=== PATIENT | female | born 1960 | race Caucasian/White ===

== ENCOUNTER 2016-08-31 15:33 | Inpatient (IN) | payer BC ==
[2016-08-31] VITALS (14 sets, daily range): BP systolic 102–119; BP diastolic 50–65; PULSE 110–118; RESP 15–24; TEMP 99.9
[~2016-08-31] VITALS: Ht 152.4 cm; Wt 83.3 kg
[~2016-08-31 15:33] MED LIST: ACET-1145 PO; ALBU8.5H3; CYCL5TAB PO; DICL75TA2 PO; LIDOCAINE 2% (SDV) 5 ML INJ ONE; NASO17; PROPOFOL 200 MG INJ ONE; SUCCINYLCHOLINE CHLORIDE 100 MG/5 ML SYG IV ONE
[2016-08-31] MEDS ORDERED: CEFEPIME 2GM/50 ML (PMX) 50 ML IVPB STA (15:43)
[2016-08-31] MEDS ORDERED: SODIUM CHLORIDE 0.9% 1L BAG IV* STA (15:43)
--- NOTE | 2016-08-31 16:19 | RADRPT ---
PROCEDURE: XR Chest. CLINICAL INDICATION: Sepsis TECHNIQUE: Chest AP portable. COMPARISON: 01/28/2009 FINDINGS: The mediastinal structures are unremarkable. The heart is normal in size and configuration. The pu lmonary vascularity is normal. The lung araujo are unremarkable. No consolidation is identified. The pleural spaces are unremarkable. The axial skeleton is unremarkable. IMPRESSION: No active intrathoracic disease. RPTAT: HGDB .Elver Eldridge MD, MD Date Time Electronically viewed and signed by .Elver Eldridge MD, on 08/31/2016 16:18 .B/
[2016-08-31] MEDS ORDERED: METR250T19 PO (16:24)
[2016-08-31] MEDS ORDERED: SUCR1TAB56 PO (16:24)
[2016-08-31] MEDS ORDERED: RANI300T PO (16:25)
[2016-08-31] MEDS ORDERED: DICY10CA60 PO (16:30)
[2016-08-31] MEDS ORDERED: DICYCLOMINE HCL PO (16:31)
[2016-08-31 16:32] LABS: HEMATOCRIT 41.3 % (37.0-47.0); HEMOGLOBIN 14.1 g/dl (12.0-16.0); MEAN CORPUSCULAR HEMOGLOBIN 29.4 pg (29.0-33.0); MEAN CORPUSCULAR HGB CONC 34.1 g/dl (32.0-37.0); MEAN CORPUSCULAR VOLUME 86.1 fl (82.0-101.0); MEAN PLATELET VOLUME 11.3 fl (7.4-10.4); PLATELET COUNT 140 10^3/UL (140-440); RED CELL DISTRIBUTION WIDTH 13.2 % (11.5-14.5); UNCORRECTED WBC 21.6 10^3/ul (4.8-10.8); WHITE BLOOD COUNT 21.6 10^3/ul (4.8-10.8)
[2016-08-31 16:41] LABS: CONDITION 1; INR 1.18; LH ANALYZER COMMENTS 1; PROTIME 15.1 Sec (12.2-14.2); PT RATIO 1.2; SUSPECT 1
[2016-08-31 16:42] LABS: ALBUMIN 3.6 g/dl (3.3-4.9); CHLORIDE 99 mmol/L (97-110); PARTIAL THROMBOPLASTIN TIME 29.8 Sec (25.0-35.0)
[2016-08-31 16:43] LABS: POTASSIUM 3.1 mmol/L (3.5-5.1); SODIUM 136 mmol/L (135-144)
[2016-08-31 16:45] LABS: ANION GAP 17 (8-16); ASPARTATE AMINO TRANSFERASE 54 IU/L (15-46); BILIRUBIN,INDIRECT 1.5 mg/dl (0-1.1); BILIRUBIN,TOTAL 1.5 mg/dl (0.2-1.3); BLOOD UREA NITROGEN 13 mg/dl (7-20); CARBON DIOXIDE 23 mmol/L (21-31); CREATININE 0.73 mg/dl (0.44-1.00); TOTAL PROTEIN 7.6 g/dl (6.1-8.1)
[2016-08-31 16:46] LABS: ALANINE AMINOTRANSFERASE 58 IU/L (13-69); ALKALINE PHOSPHATASE 116 IU/L (42-121); CALCIUM 8.8 mg/dl (8.4-10.2); GLUCOSE 140 mg/dl (70-220)
[2016-08-31 16:58] LABS: TROPONIN-I < 0.012 ng/ml (0.00-0.12)
[2016-08-31] MEDS ORDERED: ONDANSETRON 4 MG INJ IV STA (18:04)
[2016-08-31] MEDS ORDERED: morphine 4 MG/ML VIAL IV STA (18:04)
[2016-08-31 18:20] LABS: LYMPHOCYTES # 0.4 10^3/ul (0.8-2.9); MONOCYTE # 1.1 10^3/ul (0.3-0.9); NEUTROPHIL # 17.9 10^3/ul (1.6-7.5)
[2016-08-31 18:36] LABS: ADD UMIC YES; URINE BILIRUBIN (Dip) NEGATIVE (NEGATIVE); URINE BLOOD (Dip) 2+ (NEGATIVE); URINE COLOR LT. YELLOW (YELLOW); URINE GLUCOSE (Dip) NEGATIVE (NEGATIVE); URINE KETONES (Dip) 15 (NEGATIVE); URINE LEUKOCYTE ESTERASE (Dip) NEGATIVE (NEGATIVE); URINE NITRITE (Dip) NEGATIVE (NEGATIVE); URINE TOTAL PROTEIN (Dip) TRACE (NEGATIVE); URINE UROBILINOGEN (Dip) 0.2 E.U./dL (0.1-1.0)
[2016-08-31 19:13] LABS: BACTERIA,URINE FEW; MUCUS,URINE FEW; SQUAMOUS EPITHELIAL CELL,UR FEW
--- NOTE | 2016-08-31 21:11 | RADRPT ---
PROCEDURE: CT abdomen and pelvis without intravenous contrast. CLINICAL INDICATION: Pain. TECHNIQUE: CT of the abdomen/pelvis was performed utilizing axial images with reconstructions in s agittal and coronal planes. The administered radiation dose is CTDI 17 mGy, DLP 945 mGy-cm. COMPARISON: No pertinent prior examinations were submitted for comparison. FINDINGS: Visualized Chest: The visualized lung bases are clear. Abdomen: The spleen, pancreas, gallbladder,and adrenal glands are unremarkable. The liver is diffusely dec reased in attenuation, compatible with hepatic steatosis. The kidneys are without hydronephrosis. No definite urinary calculi are seen. The appendix is identified in the right lower quadrant and pelvis. The appendix is markedly enlarge d, measuring up to 2 cm and there are extensive surrounding inflammatory changes. Multiple small fo ci of extraluminal air and surrounding fluid are also present. Multiple appendicoliths are noted wi thin the appendix. There is no intra-abdominal adenopathy. There is mild intra-abdominal free fluid. Pelvis: Moderate free fluid is seen within the pelvis. The uterus is lobulated with multiple fibroids. The re is no pelvic adenopathy. The catheter is noted within the bladder. There is some thickening of the bladder christianson which may be reactive. Osseous structures: Unremarkable. IMPRESSION: Perforated appendicitis with extensive adjacent inflammatory changes. Bladder wall thickening which is likely reactive although cystitis would not be excluded. Fibroid uterus. Emergent findings were discussed with CARLOS A GUTIÉRREZ at approximately 08/31/2016 9:07:15 PM. RPTAT: HIKT .Torsten Ferguson MD, Date Time Electronically viewed and signed by .Torsten Ferguson MD, on 08/31/2016 21:10 .T/
--- NOTE | 2016-08-31 21:21 | ERA ---
ER Documentation Chief Complaint Date/Time DATE: 08/31/16 TIME: 21:11 Chief Complaint GENERALIZED ABD PAIN X 4 DAYS HPI 56-year-old female with abdominal pain and fever. Pain is lower abdominal on both sides of her abdomen and is made worse by palpation. This been worsening for 4 days. She states that she has had chills but is not sure about fevers. She has nausea and has vomited once was nonbilious nonbloody. ROS All systems reviewed and are negative except as per history of present illness. Medications Home Meds Reported Medications [Dicyclomine Hcl] No Conflict Check, 20 MG PO BID 08/31/16 Ranitidine Hcl* (Ranitidine Hcl*) 300 Mg Tablet, 300 MG PO HS, #30 TAB 08/31/16 Sucralfate* (Carafate*) 1 Gm Tab, 1 GM PO BID, TAB 08/31/16 Metronidazole* (Metronidazole*) 250 Mg Tablet, 250 MG PO BID, TAB 08/31/16 Discontinued Reported Medications Dicyclomine Hcl* (Bentyl*) 10 Mg Capsule, 20 MG PO QID, CAP 08/31/16 Cyclobenzaprine Hcl* (Cyclobenzaprine Hcl*) 5 Mg Tablet, 5 MG PO DAILY, TAB 06/26/14 Acetaminophen-Codeine (Tylenol With Codeine #3 Tablet) 300-30 Mg Tablet, 1 TAB PO BID Y for PAIN, TAB 06/26/14 Diclofenac Sodium* (Diclofenac Sodium*) 75 Mg Tablet.dr, 75 MG PO BID, TAB 06/26/14 Mometasone Furoate* (Nasonex*) 17 Gm [place].pump 11/03/11 Albuterol Sulfate* (Proair HFA*) 8.5 Gm Hfa.aer.ad 11/03/11 Allergies Allergies: Coded Allergies: naproxen (Verified Allergy, Unknown, 08/31/16) mouth swells PMhx/Soc History of Surgery: Yes () Anesthesia Reaction: No Hx Neurological Disorder: No Hx Respiratory Disorders: Yes (BRONCHITIS ) Hx Cardiac Disorders: No Hx Psychiatric Problems: No Hx Miscellaneous Medical Probl: Yes (gastric ulcer) Hx Alcohol Use: No Hx Substance Use: No Hx Tobacco Use: No Smoking Status: Never smoker Physical Exam Vitals Vital Signs Date Time Temp Pulse Resp B/P Pulse Ox O2 Delivery O2 Flow Rate FiO2 08/31/16 18:00 99.9 101 18 109/71 100 Room Air 08/31/16 17:00 99.6 104 18 112/61 98 Room Air 08/31/16 15:36 102.8 119 18 116/54 99 Physical Exam Const: [] Mild distress, appears in comfort Head: Atraumatic Eyes: Normal Conjunctiva ENT: Normal External Ears, Nose and Mouth. Neck: Full range of motion..~ No meningismus. Resp: Clear to auscultation bilaterally Cardio: Regular tachycardia, no murmurs Abd: Soft, moderate lower abdominal pain in both left lower quadrant mid abdomen suprapubic area and right lower quadrant, mild voluntary guarding, no rebound, non distended. Normal bowel sounds Skin: No petechiae or rashes Back: No midline or flank tenderness Ext: No cyanosis, or edema Neur: Awake and alert and oriented 3 Psych: Normal Mood and Affect Result Diagram: 08/31/16 1600 08/31/16 1600 Results 24 hrs Laboratory Tests Test 08/31/16 16:00 08/31/16 17:58 08/31/16 18:21 Activated Partial Thromboplast Time 29.8Sec Alanine Aminotransferase (ALT/SGPT) 58IU/L Albumin 3.6g/dl Albumin/Globulin Ratio 0.90 Alkaline Phosphatase 116IU/L Anion Gap 17 Aspartate Amino Transf (AST/SGOT) 54IU/L Band Neutrophils % 10.0% Blood Morphology Comment Blood Urea Nitrogen 13mg/dl Calcium Level 8.8mg/dl Carbon Dioxide Level 23mmol/L Chloride Level 99mmol/L Creatinine 0.73mg/dl Direct Bilirubin 0.00mg/dl Globulin 4.00g/dl Glucose Level 140mg/dl Hematocrit 41.3% Hemoglobin 14.1g/dl INR International Normalized Ratio 1.18 Indirect Bilirubin 1.5mg/dl Lactic Acid Level 1.8mmol/L 1.3mmol/L Large Platelets FEW Lymphocytes # 0.410^3/ul Lymphocytes % 2.0% Mean Corpuscular Hemoglobin 29.4pg Mean Corpuscular Hemoglobin Concent 34.1g/dl Mean Corpuscular Volume 86.1fl Mean Platelet Volume 11.3fl Monocytes # 1.110^3/ul Monocytes % 5.0% Neutrophils # 17.910^3/ul Neutrophils % 83.0% Platelet Count 83130^3/UL Potassium Level 3.1mmol/L Prothrombin Time 15.1Sec Prothrombin Time Ratio 1.2 Red Blood Count 4.8010^6/ul Red Cell Distribution Width 13.2% Sodium Level 136mmol/L Total Bilirubin 1.5mg/dl Total Protein 7.6g/dl Troponin I < 0.012ng/ml White Blood Count 21.610^3/ul Urine Bacteria FEW Urine Bilirubin NEGATIVE Urine Clarity CLEAR Urine Color LT. YELLOW Urine Glucose NEGATIVE% Urine Hemoglobin 2+ Urine Ketones 15 Urine Leukocyte Esterase NEGATIVE Urine Microscopic RBC 5-10/HPF Urine Microscopic WBC 0-2/HPF Urine Mucus FEW Urine Nitrite NEGATIVE Urine Specific [place] <=1.005 Urine Squamous Epithelial Cells FEW Urine Total Protein TRACE Urine Urobilinogen 0.2 E.U./dL Urine pH 6.0 Current Medications Medications (Trade) Dose Ordered Sig/Reymundo Route PRN Reason Start Time Stop Time Status Last Admin Dose Admin Sodium Chloride 1950 ml 1,950 ml BOLUS OVER 2 HOURS STAT IV* 08/31/16 15:43 08/31/16 15:44 DC 08/31/16 16:02 Cefepime HCl (Maxipime 2gm/50 ml (Pmx)) 50 ml @ 100 mls/hr ONCE STAT IVPB 08/31/16 15:43 08/31/16 16:12 DC 08/31/16 16:02 Morphine Sulfate (morphine) 4 mg ONCE STAT IV 08/31/16 18:04 08/31/16 18:06 DC 08/31/16 18:12 Ondansetron HCl 4 mg 4 mg ONCE STAT IV 08/31/16 18:04 08/31/16 18:06 DC 08/31/16 18:12 Metronidazole (Flagyl 500 Mg (Pmx)) 100 ml @ 100 mls/hr ONCE ONCE IVPB 08/31/16 21:30 08/31/16 22:29 Procedures/MDM Perforated appendicitis with sepsis. Patient is initially treated with cefepime 30 cc of IV fluid per kilogram. She was given morphine and Zofran. Her pain improved. Radiologist called with a CT read of perforated appendicitis. I then give the patient Flagyl as well. Spoke with Dr. Elias surgeon environmental associate who accepted the case. I then spoke with Dr. Hill who accepts the admission to medical surgical floor. If the patient additional 8 mg of morphine for pain. Give her 2 g of magnesium for prolonged QTC. Ordered IV potassium for mildly decreased potassium she is currently comfortable. Tachycardia reduced with fluid administration. CT abdomen pelvis interpretation: Perforated appendicitis, no obstruction, no acute fractures, no gallstones. EKG interpretation: Sinus tachycardia rate of 102, normal axis, no ST or T-wave changes concerning for acute ischemia, prolonged QTc of 675. Cardio my interpretation: Sinus tachycardia improved with IV fluid administration Chest x-ray interpretation: No acute process nor any stent or pneumothorax and infiltrates no bony edema no fracture Critical care time 46 minutes: This includes management of perforated appendicitis with sepsis, given fluid ministration, early antibiotic administration, discussion with surgeon and admitting doctor, discussion with patient, chart review, multiple visits the patient bedside reassess status. Departure Diagnosis: Primary Impression: Ruptured appendicitis Additional Impressions: Sepsis Prolonged QT interval Hypokalemia CARLOS A TOBIN DO Aug 31, 2016 21:20
[2016-08-31] MEDS ORDERED: metroNIDAZOLE 500 MG/NS (PMX) 100 ML IVPB ONE (21:30)
[2016-08-31] MEDS ORDERED: morphine 10 MG INJ IV ONE (21:30)
[2016-08-31] MEDS ORDERED: MAGNESIUM SULFATE 2 GM/50 ML 50 ML IVPB ONE (21:30)
[2016-08-31] MEDS: POTASSIUM CHLORIDE 50 ML IVPB SCH ×2 (21:42→23:32)
[2016-08-31] MEDS ORDERED: PROPOFOL 0 ML ONE (21:44)
[2016-08-31] MEDS ORDERED: LIDOCAINE 2% (SDV) 5 ML INJ ONE (21:45)
[2016-08-31] MEDS ORDERED: SUCCINYLCHOLINE CHLORIDE 100 MG/5 ML SYG IV ONE ×2 (21:45→22:38)
[2016-08-31] MEDS ORDERED: DEXAMETHASONE 4 MG/ML 1 ML INJ ONE (21:48)
[2016-08-31] MEDS ORDERED: KETOROLAC 30 MG INJ ONE (21:48)
[2016-08-31] MEDS ORDERED: ONDANSETRON 4 MG INJ ONE (21:48)
[2016-08-31] MEDS ORDERED: LIDOCAINE 1%/EPI (MDV) 20 ML INJ ONE (21:50)
[2016-08-31] MEDS ORDERED: BUPIVACAINE 0.25%/EPI (SDV) 30 ML INJ ONE (21:51)
[2016-08-31] MEDS ORDERED: ROCURONIUM 50 MG INJ ONE (22:38)
[2016-08-31] MEDS ORDERED: PROPOFOL 20 ML ONE (22:38)
[2016-08-31] MEDS ORDERED: GLYCOPYRROLATE 0.4 MG INJ ONE (22:45)
[2016-08-31] MEDS ORDERED: NEOSTIGMINE 3 MG/3 ML SYRINGE ONE (22:45)
[2016-08-31] MEDS ORDERED: LABETALOL HCL 20MG INJ IV PRN (23:00)
[2016-08-31] MEDS ORDERED: hydrALAzine 20 MG INJ IV PRN (23:00)
[2016-08-31] MEDS ORDERED: MEPERIDINE 25 MG INJ IV PRN (23:00)
[2016-08-31] MEDS ORDERED: ONDANSETRON 4 MG INJ IV PRN (23:00)
[2016-08-31] MEDS ORDERED: FENTAnyl 50 MCG/ML VIAL IV PRN ×3 (23:00)
[2016-08-31] MEDS ORDERED: HYDROmorphONE (0.2 MG/ML) 10ML SYG IV PRN ×3 (23:00)
[2016-08-31] MEDS: D5-NS + KCL 20 MEQ 1,000 ML IV SCH (23:15)
[2016-09-01] VITALS: BP 118/63; PULSE 109; RESP 21
[2016-09-01 00:30] VITALS: BP 112/59; PULSE 108; RESP 22
[2016-09-01] MEDS: POTASSIUM CHLORIDE 50 ML IVPB SCH (00:32)
[2016-09-01 01:15] VITALS: BP 118/59; PULSE 97; RESP 16
[2016-09-01 01:44] VITALS: Ht 152.4 cm; Wt 83.3 kg
[2016-09-01] MEDS ORDERED: METOCLOPRAMIDE 10 MG INJ IV PRN (02:30)
[2016-09-01] MEDS: D5-NS + KCL 20 MEQ 1,000 ML IV SCH ×3 (02:33→19:15)
[2016-09-01] MEDS: PIPER-TAZO 3.375 GM IV (PMX) 100 ML IVPB SCH ×6 (02:34→23:49)
[2016-09-01 06:00] LABS: HEMATOCRIT 33.5 % (37.0-47.0); HEMOGLOBIN 11.7 g/dl (12.0-16.0); MEAN CORPUSCULAR HGB CONC 34.9 g/dl (32.0-37.0); MEAN CORPUSCULAR VOLUME 85.9 fl (82.0-101.0); MEAN PLATELET VOLUME 11.2 fl (7.4-10.4); PLATELET COUNT 120 10^3/UL (140-440); RED CELL DISTRIBUTION WIDTH 13.2 % (11.5-14.5); UNCORRECTED WBC 14.2 10^3/ul (4.8-10.8); WHITE BLOOD COUNT 14.2 10^3/ul (4.8-10.8)
[2016-09-01 06:02] LABS: CONDITION 1; LH ANALYZER COMMENTS 1; SUSPECT 1
[2016-09-01] MEDS: PANTOPRAZOLE 40 MG INJ IV SCH (06:07)
[2016-09-01] MEDS: ENOXAPARIN 40 MG/0.4 ML SYG SC SCH (06:18)
[2016-09-01 06:30] LABS: MAGNESIUM 1.9 mg/dl (1.7-2.5); PHOSPHORUS 2.4 mg/dl (2.5-4.9)
--- NOTE | 2016-09-01 06:30 | PREOPHP ---
DATE OF ADMISSION: 08/31/2016 HISTORY OF PRESENT ILLNESS: Ms. Douglas is a 56-year-old female who had 2 days of abdominal pain. He r pain was to her bilateral lower abdomen. She had chills, but no fevers. She had nausea but no em esis. She came to the ER where her workup was consistent with perforated appendicitis. PAST MEDICAL HISTORY: Noncontributory. PAST SURGICAL HISTORY: . ALLERGIES: NAPROSYN. MEDICATIONS: None. PHYSICAL EXAMINATION: GENERAL: She is a well-nourished, obese female in some mild distress. VITAL SIGNS: Temperature is 99.9, heart rate 104, BP 109/71. CHEST: Clear to auscultation bilaterally. HEART: Regular rhythm. ABDOMEN: Mildly distended with significant right and left lower quadrant tenderness. LABORATORY DATA: Reveal white count 22, hematocrit 41, platelets 140. Sodium 136, potassium 3.1, c hloride 99, CO2 23, BUN and creatinine 13 and 0.7 and glucose of 140. LFTs are within normal limits . Coags: PT is 1.2 and PTT is 29.8. A CT of her abdomen and pelvis was consistent with acute perforated appendicitis. ASSESSMENT AND PLAN: Ms. Douglas is a 56-year-old female with acute perforated appendicitis. I disc ussed laparoscopic, possible open appendectomy. All benefits, risks, alternatives discussed in deta ok with her and her . All questions answered. The patient elects to proceed. Dictated By: GIA LATHAM/NTS Conf#: [id number] DID#: [id number]
[2016-09-01 06:33] LABS: ALBUMIN 2.5 g/dl (3.3-4.9); POTASSIUM 3.7 mmol/L (3.5-5.1)
--- NOTE | 2016-09-01 06:34 | OPR ---
DATE OF OPERATION: 08/31/2016 PREOPERATIVE DIAGNOSIS: Acute perforated appendicitis. POSTOPERATIVE DIAGNOSIS: Acute perforated appendicitis. PROCEDURE: Laparoscopic appendectomy. SURGEON: Gia Elias MD CHARGING OPERATOR: None. ANESTHESIA: General endotracheal. ANESTHESIOLOGIST: Dr. Wilcox. ESTIMATED BLOOD LOSS: Minimal. COMPLICATIONS: None. SPECIMENS: Appendix. FINDINGS: Acute perforated appendicitis with generalized peritonitis. DRAINS: A 19-Irish round CHERIE drain in the right paracolic gutter. INDICATIONS: A 56-year-old female with 2-day history of worsening abdominal wall. She presented to the ER, workup was consistent with acute appendicitis. I discussed proceeding with a laparoscopic possible open appendectomy with the patient and her . All benefits, risks, alternatives were discussed in detail, all questions answered, and the patient wished to proceed. PROCEDURE: The patient was brought to the operating room, placed supine on the table. After preopera tive antibiotics and SCDs were placed, the patient was intubated and the abdomen was cleaned, preppe d and draped in sterile fashion. All incisions were infiltrated with 1% lidocaine with epinephrine and 0.5% Marcaine prior to incision. A 5 mm incision was made in the umbilicus. Using a 5 mm laparo scope-containing trocar, the abdomen was entered under direct vision and insufflated to 15 mmHg CO2. The following trocars were then placed under direct vision, right lower quadrant 5 mm and a left l ower quadrant 12 mm. The cecum and terminal ileum were adherent to the right lower quadrant and pel vis and I bluntly dissected the terminal ileum off the sidewall identified and then got into a large purulent and feculent cavity. Cultures were taken. I was then able to identify the appendix. I i rrigated out the right lower quadrant and pelvis and underneath the uterus until effluent was clear. At this point, I was able to elevate my appendix, come through the mesentery at the base and divid e the cecum at the base of the appendix with a 35 mm Endo linear cutter white load. The appendiceal mesentery was then divided with two 35 mm Endo linear cutter white load. The appendix was placed i n EndoCatch bag and removed from the 12 mm trocar site. I should state that it was obvious that the patient had perforated appendicitis. There was a fecalith in the right lower quadrant which was re moved as well. I then copiously irrigated and aspirated the right lower quadrant and pelvis until e ffluent was clear. Once again, I should state that there was an obvious abscess cavity which was op ened up in the right lower quadrant. I visualized my staple lines and they were hemostatic. A 19-F rench round [place] drain was placed in the pelvis and right paracolic gutter, and came out the right lower quadrant 5 mm trocar site, and was sutured to the skin with a 2-0 nylon. The fascia of the 12 mm trocar site was closed with 0 Vicryl using an EndoClose device under direct vision. The abdomen was desufflated and all trocars removed. Skin incisions were all closed with 4-0 Monocryl, Mastisol, Steri-Strips, 2 x 2 gauze and Tegaderm w as placed over the CHERIE drain exit site only. The patient tolerated procedure well, was extubated in the OR and transferred to recovery room in stable condition. Dictated By: GIA LATHAM/LIAT Conf#: [id number] DID#: [id number]
[2016-09-01 06:35] LABS: CREATININE 0.59 mg/dl (0.44-1.00)
[2016-09-01 06:36] LABS: ALBUMIN/GLOBULIN RATIO 0.73; BILIRUBIN,INDIRECT 1.1 mg/dl (0-1.1); BILIRUBIN,TOTAL 1.1 mg/dl (0.2-1.3); CALCIUM 8.3 mg/dl (8.4-10.2); TOTAL PROTEIN 5.9 g/dl (6.1-8.1)
--- NOTE | 2016-09-01 07:19 | HP ---
DATE OF ADMISSION: 08/31/2016 TIME SEEN: 2330. CHIEF COMPLAINT: Abdominal pain. HISTORY OF PRESENT ILLNESS: The patient is a 56-year-old female with a history of asthma who presen shan to the emergency department with abdominal pain. The pain has been going on since Saturday for wh ich she saw her primary care doctor and was diagnosed with an ulcer and it seems like she has been o n ranitidine and Carafate. The pain persisted in as such she came here for evaluation. On initial presentation, she was febrile with a temperature of 102.8 and tachycardic with a heart rate of 119. CT abdomen and pelvis showed perforated appendicitis with extensive adjacent inflammatory change, b ladder wall thickening which is likely reactive, also cystitis would not be excluded. Also noted wa s a fibroid uterus. The initial white count was 21.6, potassium 3.1, total bilirubin 1.5 and AST sl ightly elevated at 54, otherwise CBC and CMP are within normal limits. The patient has already been seen by Dr. Elias on-call surgeon and actually underwent an appendectomy. She was sleepy but arou sable and complains of minimal pain, otherwise denied nausea, vomiting, fever, chills, chest pain or shortness of breath. REVIEW OF SYSTEMS: A 12-point review of systems was performed negative as mentioned in the HPI. PAST MEDICAL HISTORY: As per HPI. PAST SURGICAL HISTORY: . SOCIAL HISTORY: Denies a history of tobacco, alcohol or illicit drug use. ALLERGIES: NAPROXEN. HOME MEDICATIONS: 1. Loratadine. 2. Carafate. 3. Dicyclomine. 4. Flagyl. PHYSICAL EXAMINATION VITAL SIGNS: Blood pressure 103/55, heart rate 116, respiratory rate 24, temperature 99.2, oxygen s aturation 100% on room air. GENERAL: Morbidly obese female lying in bed who is sleepy, but arousable. HEENT: No obvious head deformity. Pupils reactive to light. Extraocular movements intact. CARDIOVASCULAR: Tachycardic with regular rhythm. LUNGS: Clear. ABDOMEN: Morbidly obese. Surgical area is covered with a dressing. There is some abdominal tender ness but no rigidity and no guarding. LABORATORY: Pertinent positives as mentioned in the HPI. IMAGING: CT abdomen and pelvis with results as mentioned in the HPI. Chest x-ray shows no active i ntrathoracic disease. IMPRESSION: 1. Perforated appendicitis, status post open appendectomy. 2. Sepsis as evidenced by leukocytosis, fever and tachycardia, secondary to ruptured appendicitis. 3. Hypokalemia. 4. History of asthma. PLAN: The patient is status post open appendectomy. We will start her on a clear diet and advance as tolerated when okay with surgery, getting out of bed and early ambulation is encouraged. We will provide pain medication as needed. The patient will continue to be followed by Dr. Elias for post operative management. Further workup and management will be per clinical course. Dictated By: DEANNA DUPONT/LIAT Conf#: [id number] DID#: [id number]
[2016-09-01 07:30] VITALS: BP 106/56; RESP 15
--- NOTE | 2016-09-01 08:04 | PN ---
Date/Time of Note Date/Time of Note DATE: 09/01/16 TIME: 08:01 Assessment/Plan VTE Prophylaxis VTE Prophylaxis Intervention: contraindicated Lines/Catheters IV [facility] Peripheral IV Urinary Cath still in place: Yes Reason Cath still needed: other (indicate) (Immediately postop) Assessment/Plan Problems: (1) Status post appendectomy Status: Acute Comment: She is postop and stable. Her bowel sounds are quite at this time she has an NG tube present. She will work on deep breathing exercises. Hopefully she will progress along steadily after the excellent surgical approach by Dr. Elias (2) Mild intermittent asthma Status: Chronic Comment: Noted and presently not active Qualifiers: Asthma complication type: uncomplicated Qualified Code: J45.20 - Mild intermittent asthma without complication (3) Ruptured appendicitis Status: Acute Comment: Postop (4) Hypokalemia Status: Resolved Comment: Corrected Assessment/Plan General care check routine labs as appropriate based on NIH guidelines Subjective 24 Hr Interval Summary Free Text/Dictation Jose 56-year-old woman lying in bed. She is conversant. Constitutional: no complaints (Reports no further fever chills or sweats.) Eyes: no complaints Respiratory: no complaints (Denies shortness of breath) Cardiovascular: no complaints (Denies chest pain palpitation) Gastrointestinal: pain (Notes abdominal pain.) Genitourinary: no complaints Exam/Review of Systems Vital Signs Vitals Vital Signs Date Time Temp Pulse Resp B/P Pulse Ox O2 Delivery O2 Flow Rate FiO2 09/01/16 07:30 98.2 82 15 106/56 100 09/01/16 01:15 Nasal Cannula 2.0 Intake and Output 08/31/16 08/31/16 09/01/16 15:00 23:00 07:00 Intake Total 400 ml Output Total 1120 ml 900 ml Balance -1120 ml -500 ml Exam Has NG tube present and is in pain which she grades at 5 out of 10 Constitutional: alert, oriented Respiratory: clear to auscultation, normal air movement Cardiovascular: nl pulses, regular rate and rhythm Gastrointestinal: nl liver, spleen, non-tender, other (Bowel sounds are absent at this time), soft Results Result Diagram: 09/01/16 0427 09/01/16 0427 Results 24 hrs Laboratory Tests Test 08/31/16 16:00 08/31/16 17:58 08/31/16 18:21 08/31/16 21:00 Activated Partial Thromboplast Time 29.8 Alanine Aminotransferase (ALT/SGPT) 58 Albumin 3.6 Albumin/Globulin Ratio 0.90 Alkaline Phosphatase 116 Anion Gap 17 H Aspartate Amino Transf (AST/SGOT) 54 H Band Neutrophils % 10.0 H Blood Morphology Comment Blood Urea Nitrogen 13 Calcium Level 8.8 Carbon Dioxide Level 23 Chloride Level 99 Creatinine 0.73 Direct Bilirubin 0.00 Globulin 4.00 H Glucose Level 140 Hematocrit 41.3 Hemoglobin 14.1 INR International Normalized Ratio 1.18 Indirect Bilirubin 1.5 H Lactic Acid Level 1.8 1.3 1.5 Large Platelets FEW Lymphocytes # 0.4 L Lymphocytes % 2.0 L Mean Corpuscular Hemoglobin 29.4 Mean Corpuscular Hemoglobin Concent 34.1 Mean Corpuscular Volume 86.1 Mean Platelet Volume 11.3 H Monocytes # 1.1 H Monocytes % 5.0 Neutrophils # 17.9 H Neutrophils % 83.0 H Platelet Count 140 Potassium Level 3.1 L Prothrombin Time 15.1 H Prothrombin Time Ratio 1.2 Red Blood Count 4.80 Red Cell Distribution Width 13.2 Sodium Level 136 Total Bilirubin 1.5 H Total Protein 7.6 Troponin I < 0.012 White Blood Count 21.6 H Urine Bacteria FEW Urine Bilirubin NEGATIVE Urine Clarity CLEAR Urine Color LT. YELLOW Urine Glucose NEGATIVE Urine Hemoglobin 2+ H Urine Ketones 15 Urine Leukocyte Esterase NEGATIVE Urine Microscopic RBC 5-10 Urine Microscopic WBC 0-2 Urine Mucus FEW Urine Nitrite NEGATIVE Urine Specific [place] <=1.005 L Urine Squamous Epithelial Cells FEW Urine Total Protein TRACE Urine Urobilinogen 0.2 E.U./dL Urine pH 6.0 Test 09/01/16 04:27 Alanine Aminotransferase (ALT/SGPT) 38 Albumin 2.5 #L Albumin/Globulin Ratio 0.73 Alkaline Phosphatase 78 Anion Gap 12 Aspartate Amino Transf (AST/SGOT) 23 Basophils # Pending Basophils % Pending Blood Morphology Comment Blood Urea Nitrogen 8 Calcium Level 8.3 L Carbon Dioxide Level 25 Chloride Level 107 Creatinine 0.59 Direct Bilirubin 0.00 Eosinophils # Pending Eosinophils % Pending Globulin 3.40 H Glucose Level 144 Hematocrit 33.5 L Hemoglobin 11.7 L Indirect Bilirubin 1.1 Lymphocytes # Pending Lymphocytes % Pending Magnesium Level 1.9 Mean Corpuscular Hemoglobin 30.0 Mean Corpuscular Hemoglobin Concent 34.9 Mean Corpuscular Volume 85.9 Mean Platelet Volume 11.2 H Monocytes # Pending Monocytes % Pending Neutrophils # Pending Neutrophils % Pending Nucleated Red Blood Cells # Pending Nucleated Red Blood Cells % Pending Phosphorus Level 2.4 L Platelet Count 120 L Potassium Level 3.7 Red Blood Count 3.90 L Red Cell Distribution Width 13.2 Sodium Level 140 Total Bilirubin 1.1 Total Protein 5.9 #L White Blood Count 14.2 #H Medications Medications Current Medications Piperacillin Sod/ Tazobactam Sod (Zosyn 3.375gm/ 100 ml (Pmx)) 100 ml @ 200 mls /hr Q6 IVPB Last administered on 09/01/16 06:07; Admin Dose 200 MLS/HR; Start 09/01/16 at 00:00 Ondansetron HCl (Zofran Inj) 4 mg Q6H PRN IV NAUSEA AND/OR VOMITING; Start at 22:00 Acetaminophen (Tylenol Tab) 650 mg Q6H PRN PO PAIN LEVEL 1-3 OR FEVER; Start at 22:00 Morphine Sulfate (morphine) 2 mg Q2H PRN IV PAIN LEVEL 8-10; Start 08/31/16 at 22:00 Oxycodone/ Acetaminophen 1 tab 1 tab Q6H PRN PO PAIN LEVEL 4-7; Start 08/31/16 at 22:00 Potassium Chloride/Dextrose/ Sod Cl (D5-NS + KCl 20 Meq) 1,000 ml @ 100 mls/hr Q10H IV Last administered on 09/01/16 02:33; Admin Dose 100 MLS/HR; Start at 23:15 Pantoprazole (Protonix Iv) 40 mg DAILY@06 IV Last administered on 09/01/16 06: 07; Admin Dose 40 MG; Start 09/01/16 at 06:00 Enoxaparin Sodium (Lovenox) 40 mg DAILY@07 SC Last administered on 09/01/16 06 :18; Admin Dose 40 MG; Start 09/01/16 at 07:00 Ketorolac Tromethamine (Toradol) 15 mg Q6H PRN IV PAIN; Start 09/01/16 at 02:30 ; Stop 09/04/16 at 02:29 Metoclopramide HCl (Reglan) 10 mg Q6H PRN IV NAUSEA AND/OR VOMITING; Start at 02:30 CARLOS A DEJESUS MD Sep 01, 2016 08:04
[2016-09-01 09:49] LABS: LYMPHOCYTES # 0.4 10^3/ul (0.8-2.9); MONOCYTE # 0.3 10^3/ul (0.3-0.9); NEUTROPHIL # 10.2 10^3/ul (1.6-7.5)
[2016-09-01 09:50] LABS: PLATELET ESTIMATE PLT APPEAR ADEQUATE
[2016-09-01 11:07] LABS: THYROID STIMULATING HORMONE 0.546 MIU/L (0.465-4.680)
[2016-09-01] MEDS: OXYCODONE/ACETAMINOPHEN (5/325) TAB PO PRN (12:36)
[2016-09-01] MEDS: KETOROLAC 15 MG INJ IV PRN (16:40)
[2016-09-01 19:30] VITALS: BP 102/58; RESP 18
--- NOTE | 2016-09-01 21:20 | PN ---
DATE: 09/01/2016 SUBJECTIVE: Ms. Douglas is postop day 1 for laparoscopic appendectomy for perforated appendicitis. The patient complains of some lower abdominal pain. PHYSICAL EXAMINATION: VITAL SIGNS: Stable. She is afebrile. CHEST: Clear to auscultation bilaterally. HEART: Regular rhythm. ABDOMEN: Soft with some mild tenderness and some bilateral lower quadrant abdominal tenderness. LABORATORY DATA: Today reveal a white count of 14, hematocrit of 34, platelets of 120,000. Sodium 140, potassium 3.7, chloride 107, CO2 of 25, BUN and creatinine 8 and 0.6, glucose 144. ASSESSMENT AND PLAN: Ms. Douglas is postop day #1 for laparoscopic appendectomy for perforated appen dicitis. 1. Her NG tube was removed and she started on ice chips. 2. Discontinue Díaz in the morning. 3. Will start on clears tomorrow. 4. Hopefully, will discharge in the next 24-48 hours, if afebrile and white count resolves. Dictated By: GIA LATHAM/LITA Conf#: [id number] DID#: [id number]
[2016-09-01] MEDS: morphine 2 MG INJ IV PRN (23:49)
[2016-09-01] MEDS: ACETAMINOPHEN 325 MG TAB PO PRN (23:55)
[2016-09-02] MEDS: KETOROLAC 15 MG INJ IV PRN (03:25)
[2016-09-02 05:12] LABS: BASOPHILS % 0.1 % (0.0-2.0); LYMPHOCYTES # 0.7 10^3/ul (0.8-2.9); LYMPHOCYTES % 5.1 % (15.0-51.0); MEAN CORPUSCULAR HEMOGLOBIN 29.7 pg (29.0-33.0); MEAN CORPUSCULAR HGB CONC 34.4 g/dl (32.0-37.0); MEAN CORPUSCULAR VOLUME 86.4 fl (82.0-101.0); MEAN PLATELET VOLUME 11.3 fl (7.4-10.4); MONOCYTE # 0.8 10^3/ul (0.3-0.9); MONOCYTES % 6.3 % (0.0-11.0); NEUTROPHIL # 11.3 10^3/ul (1.6-7.5); NEUTROPHILS % 88.5 % (39.0-77.0); PLATELET COUNT 106 10^3/UL (140-440); RED BLOOD COUNT 3.36 10^6/ul (4.20-5.40); RED CELL DISTRIBUTION WIDTH 13.5 % (11.5-14.5); UNCORRECTED WBC 12.8 10^3/ul (4.8-10.8); WHITE BLOOD COUNT 12.8 10^3/ul (4.8-10.8)
[2016-09-02] MEDS: D5-NS + KCL 20 MEQ 1,000 ML IV SCH ×2 (05:13→17:16)
[2016-09-02 05:34] LABS: ALBUMIN 2.4 g/dl (3.3-4.9)
[2016-09-02 05:35] LABS: POTASSIUM 3.6 mmol/L (3.5-5.1)
[2016-09-02 05:37] LABS: ALBUMIN/GLOBULIN RATIO 0.72; BILIRUBIN,INDIRECT 0.7 mg/dl (0-1.1); BILIRUBIN,TOTAL 0.7 mg/dl (0.2-1.3); CREATININE 0.63 mg/dl (0.44-1.00); TOTAL PROTEIN 5.7 g/dl (6.1-8.1)
[2016-09-02 05:38] LABS: CALCIUM 8.1 mg/dl (8.4-10.2)
[2016-09-02 05:48] LABS: SUSPECT 1
[2016-09-02 05:49] LABS: CONDITION 1; LH ANALYZER COMMENTS 1
[2016-09-02] MEDS: PANTOPRAZOLE 40 MG INJ IV SCH (06:04)
[2016-09-02] MEDS: PIPER-TAZO 3.375 GM IV (PMX) 100 ML IVPB SCH ×4 (06:04→23:54)
[2016-09-02] MEDS: ENOXAPARIN 40 MG/0.4 ML SYG SC SCH (06:08)
[2016-09-02 07:35] VITALS: BP 104/58; RESP 17
[2016-09-02 07:38] VITALS: BP 121/59; RESP 17
--- NOTE | 2016-09-02 10:16 | PN ---
Date/Time of Note Date/Time of Note DATE: 09/02/16 TIME: 10:15 Assessment/Plan VTE Prophylaxis VTE Prophylaxis Intervention: other Lines/Catheters IV Catheter Type (from Nrs): Peripheral IV Urinary Cath still in place: Yes Reason Cath still needed: other (indicate) (DC Díaz catheter today) Assessment/Plan Problems: (1) Ruptured appendicitis Status: Acute Comment: She is recuperating beautifully after the excellent intervention from our general surgical colleagues Dr. Elias. Progress is as expected (2) Mild intermittent asthma Status: Chronic Comment: Well-controlled Qualifiers: Asthma complication type: uncomplicated Qualified Code: J45.20 - Mild intermittent asthma without complication Subjective 24 Hr Interval Summary Free Text/Dictation Patient sitting up in chair eating ice chips and reporting that she is feeling better. Constitutional: no complaints (Denies fevers chills sweats) Respiratory: no complaints Cardiovascular: no complaints Gastrointestinal: no complaints (Specifically denies nausea or vomiting some postoperative pain is present) Exam/Review of Systems Vital Signs Vitals Vital Signs Date Time Temp Pulse Resp B/P Pulse Ox O2 Delivery O2 Flow Rate FiO2 09/02/16 08:00 Nasal Cannula 2.0 09/02/16 07:35 98.1 76 17 104/58 97 Intake and Output 09/01/16 09/01/16 09/02/16 15:00 23:00 07:00 Intake Total 100 ml 900 ml 1150 ml Output Total 530 ml 560 ml Balance 100 ml 370 ml 590 ml Exam Constitutional: alert, oriented Respiratory: clear to auscultation, normal air movement Cardiovascular: nl pulses, regular rate and rhythm Gastrointestinal: bowel sounds (Bowel sounds are active), nl liver, spleen, soft Results Result Diagram: 09/02/16 0500 09/02/16 0426 Results 24 hrs Laboratory Tests Test 09/02/16 04:26 09/02/16 05:00 Alanine Aminotransferase (ALT/SGPT) 39 Albumin 2.4 L Albumin/Globulin Ratio 0.72 Alkaline Phosphatase 73 Anion Gap 9 Aspartate Amino Transf (AST/SGOT) 23 Blood Urea Nitrogen 17 # Calcium Level 8.1 L Carbon Dioxide Level 26 Chloride Level 111 H Creatinine 0.63 Direct Bilirubin 0.00 Globulin 3.30 H Glucose Level 115 Indirect Bilirubin 0.7 Potassium Level 3.6 Sodium Level 142 Total Bilirubin 0.7 Total Protein 5.7 L Basophils # 0.0 Basophils % 0.1 Blood Morphology Comment Eosinophils # 0.0 Eosinophils % 0.0 Hematocrit 29.0 L Hemoglobin 10.0 L Lymphocytes # 0.7 L Lymphocytes % 5.1 L Mean Corpuscular Hemoglobin 29.7 Mean Corpuscular Hemoglobin Concent 34.4 Mean Corpuscular Volume 86.4 Mean Platelet Volume 11.3 H Monocytes # 0.8 Monocytes % 6.3 Neutrophils # 11.3 H Neutrophils % 88.5 H Nucleated Red Blood Cells # 0.0 Nucleated Red Blood Cells % 0.0 Platelet Count 106 L Red Blood Count 3.36 L Red Cell Distribution Width 13.5 White Blood Count 12.8 H Medications Medications Current Medications Piperacillin Sod/ Tazobactam Sod (Zosyn 3.375gm/ 100 ml (Pmx)) 100 ml @ 200 mls /hr Q6 IVPB Last administered on 09/02/16 06:04; Admin Dose 200 MLS/HR; Start 09/01/16 at 00:00 Ondansetron HCl (Zofran Inj) 4 mg Q6H PRN IV NAUSEA AND/OR VOMITING; Start at 22:00 Acetaminophen (Tylenol Tab) 650 mg Q6H PRN PO PAIN LEVEL 1-3 OR FEVER Last administered on 09/01/16 23:55; Admin Dose 650 MG; Start 08/31/16 at 22:00 Morphine Sulfate (morphine) 2 mg Q2H PRN IV PAIN LEVEL 8-10 Last administered on 09/01/16 23:49; Admin Dose 2 MG; Start 08/31/16 at 22:00 Oxycodone/ Acetaminophen 1 tab 1 tab Q6H PRN PO PAIN LEVEL 4-7 Last administered on 09/01/16 12:36; Admin Dose 1 TAB; Start 08/31/16 at 22:00 Potassium Chloride/Dextrose/ Sod Cl (D5-NS + KCl 20 Meq) 1,000 ml @ 100 mls/hr Q10H IV Last administered on 09/02/16 05:13; Admin Dose 100 MLS/HR; Start at 23:15 Pantoprazole (Protonix Iv) 40 mg DAILY@06 IV Last administered on 09/02/16 06: 04; Admin Dose 40 MG; Start 09/01/16 at 06:00 Enoxaparin Sodium (Lovenox) 40 mg DAILY@07 SC Last administered on 09/02/16 06 :08; Admin Dose 40 MG; Start 09/01/16 at 07:00 Ketorolac Tromethamine (Toradol) 15 mg Q6H PRN IV PAIN Last administered on 03:25; Admin Dose 15 MG; Start 09/01/16 at 02:30; Stop 09/04/16 at 02:29 Metoclopramide HCl (Reglan) 10 mg Q6H PRN IV NAUSEA AND/OR VOMITING; Start at 02:30 CARLOS A DEJESUS MD Sep 02, 2016 10:16
[2016-09-02] MEDS: morphine 2 MG INJ IV PRN (17:43)
--- NOTE | 2016-09-02 19:33 | PN ---
DATE: 09/02/2016 SUBJECTIVE: Ms. Douglas is postop day 2 from a laparoscopic appendectomy. The patient is feeling be tter. She is tolerating clears and has flatus. PHYSICAL EXAMINATION: VITAL SIGNS: He is afebrile. Vital signs stable. She is afebrile for 48 hours. CHEST: Clear to auscultation bilaterally. HEART: Regular rhythm. ABDOMEN: Soft, nontender with some incisional tenderness. Her CHERIE is draining serous fluid. Her ur ine output has been a liter. LABORATORY DATA: Today reveal white count of 13, hematocrit 29, and platelets of 106. Sodium 142, potassium 3.6, chloride 111, CO2 of 26, BUN and creatinine of 17 and 0.6, and glucose 115. ASSESSMENT AND PLAN: Mr. Douglas is a 56-year-old female status post laparoscopic appendectomy for p erforated appendicitis. 1. Advance to regular diet tomorrow. 2. Can discharge tomorrow on oral antibiotics. 3. Follow up in 1 week with me for drain removal. Dictated By: GIA LATHAM/NTS Conf#: [id number] DID#: [id number]
[2016-09-02] MEDS: OXYCODONE/ACETAMINOPHEN (5/325) TAB PO PRN (19:56)
[2016-09-02 20:26] VITALS: BP 143/73; RESP 18
[2016-09-03] MEDS: OXYCODONE/ACETAMINOPHEN (5/325) TAB PO PRN (03:52)
[2016-09-03] MEDS: PANTOPRAZOLE 40 MG INJ IV SCH (03:52)
[2016-09-03] MEDS: PIPER-TAZO 3.375 GM IV (PMX) 100 ML IVPB SCH ×4 (05:46→23:56)
[2016-09-03] MEDS: ONDANSETRON 4 MG INJ IV PRN ×2 (05:46→12:01)
[2016-09-03] MEDS: ENOXAPARIN 40 MG/0.4 ML SYG SC SCH (06:38)
[2016-09-03 08:12] VITALS: BP 129/64; RESP 20
[2016-09-03] MEDS: morphine 2 MG INJ IV PRN ×2 (09:33→18:24)
[2016-09-03] MEDS: D5-NS + KCL 20 MEQ 1,000 ML IV SCH (10:57)
[2016-09-03 19:22] VITALS: BP 141/63; RESP 18
[2016-09-03] MEDS: ACETAMINOPHEN 325 MG TAB PO PRN (20:41)
[2016-09-03 23:13] VITALS: BP 136/71; RESP 18
[2016-09-04] MEDS: ACETAMINOPHEN 325 MG TAB PO PRN ×2 (04:40→15:05)
[2016-09-04] MEDS: PIPER-TAZO 3.375 GM IV (PMX) 100 ML IVPB SCH ×3 (06:04→18:00)
[2016-09-04] MEDS: PANTOPRAZOLE 40 MG INJ IV SCH (06:04)
[2016-09-04] MEDS: D5-NS + KCL 20 MEQ 1,000 ML IV SCH (06:04)
[2016-09-04] MEDS: ENOXAPARIN 40 MG/0.4 ML SYG SC SCH (06:05)
[2016-09-04 07:53] VITALS: BP 125/81; RESP 19
--- NOTE | 2016-09-04 08:48 | PDOCDIS ---
Discharge Instructions DIAGNOSIS Discharge Diagnosis: Perforated appendicitis; decreased hearing CONDITION Patient Condition: Good HOME CARE INSTRUCTIONS: Diet Instructions: Regular ACTIVITY: Activity Restrictions: Slowly Increase Activity Do not operate Power Tool FOLLOW UP/APPOINTMENTS Appointments Follow-up general surgery Dr. Elias in 1 week CARLOS A DEJESUS MD Sep 04, 2016 08:48
[2016-09-04] MEDS ORDERED: LEVO500S PO (08:49)
[2016-09-04] MEDS: ONDANSETRON 4 MG INJ IV PRN (08:53)
--- NOTE | 2016-09-04 08:53 | DS ---
Date/Time of Note Date/Time of Note DATE: 09/04/16 TIME: 08:49 Discharge Summary Admission/Discharge Info Admit Date/Time Aug 31, 2016 at 21:46 Discharge Date/Time 09/04/2016 Final Diagnosis Perforated appendicitis with peritonitis; decreased hearing; anemia Patient Condition: Fair Consults General surgery/Dr. Elias Procedures Laparoscopic appendectomy; IV antibiotic Hx of Present Illness Ms. Douglas is a 56-year-old female who had 2 days of abdominal pain. Her pain was to her bilateral lower abdomen. She had chills, but no fevers. She had nausea but no emesis. She came to the ER where her workup was consistent with perforated appendicitis. Hospital Course Jose 56-year-old woman came with perforated appendicitis. She underwent laparoscopic appendectomy with cleanout and placement of drains. She is placed on antibiotics and actually had significant and steady improvement under the careful guidance of the general surgical consultation Dr. Elias. She is now improved to the point that she is stable for discharge. Please note that her blood cultures were negative. She will need to be followed up as an outpatient and also need to be on oral iron therapy. For anemia. She is not a hazard to herself or others she has no known communicable diseases her rehabilitation potential is good she is competent for medical decision-making Home Meds Active Scripts Levofloxacin (Levofloxacin) 500 Mg/20 Ml Solution, 500 MG PO DAILY for 7 Days, ML Prov:CARLOS A DEJESUS MD 09/04/16 Reported Medications [Dicyclomine Hcl] No Conflict Check, 20 MG PO BID 08/31/16 Ranitidine Hcl* (Ranitidine Hcl*) 300 Mg Tablet, 300 MG PO HS, #30 TAB 08/31/16 Sucralfate* (Carafate*) 1 Gm Tab, 1 GM PO BID, TAB 08/31/16 Metronidazole* (Metronidazole*) 250 Mg Tablet, 250 MG PO BID, TAB 08/31/16 Discontinued Reported Medications Dicyclomine Hcl* (Bentyl*) 10 Mg Capsule, 20 MG PO QID, CAP 08/31/16 Cyclobenzaprine Hcl* (Cyclobenzaprine Hcl*) 5 Mg Tablet, 5 MG PO DAILY, TAB 06/26/14 Acetaminophen-Codeine (Tylenol With Codeine #3 Tablet) 300-30 Mg Tablet, 1 TAB PO BID Y for PAIN, TAB 06/26/14 Diclofenac Sodium* (Diclofenac Sodium*) 75 Mg Tablet.dr, 75 MG PO BID, TAB 06/26/14 Mometasone Furoate* (Nasonex*) 17 Gm Mulino.pump 11/03/11 Albuterol Sulfate* (Proair HFA*) 8.5 Gm Hfa.aer.ad 11/03/11 Follow-up Plan General surgery within 1 week; her regular primary care physician in 3 weeks CARLOS A DEJESUS MD Sep 04, 2016 08:53
== END 2016-09-04 18:40 | disposition home or self-care (01) | DRG 853 ==
LOC: E/R 15:33 → SDS 21:45 → MS1 21:46
PROVIDERS: ADMIT Internal Medicine; ATTEND Internal Medicine
PROC: 0DTJ4ZZ Resection of Appendix, Percutaneous Endoscopic Approach (ICD-10-PCS; principal; 2016-08-31 22:30)
DX: A41.9 Sepsis, unspecified organism (principal); K35.2 Acute appendicitis with generalized peritonitis; E87.6 Hypokalemia; D64.9 Anemia, unspecified; J45.20 Mild intermittent asthma, uncomplicated; E66.01 Morbid (severe) obesity due to excess calories; Z68.35 Body mass index [BMI] 35.0-35.9, adult
CPT/HCPCS: 36415; 71010; 74176; 80053; 81001; 81003; 83605; 83735; 84100; 84443; 84484; 85025; 85610; 85730; 86803; 86850; 86900; 86901; 87040; 87070; 87075; 87086; 87102; 87340; 88304; 93005; 96374; 96375; 97162; A4310; C9113; J0330; J1100; J1650; J1885; J2270; J2405; J2543; J2710; J3010; J3475; J3480; J7030; P9612

== ENCOUNTER 2017-12-08 04:17 | Emergency (ER) | END 2017-12-08 05:55 | disposition home or self-care (01) ==

== ENCOUNTER 2019-04-16 21:31 | Emergency (ER) | payer BC ==
[~2019-04-16] VITALS: Ht 160 cm; Wt 77.3 kg
[~2019-04-16 21:31] MED LIST changes: -ACET-1145 PO; +ACET500C5 PO; -ALBU8.5H3; +ALBU8.5H8 INH; +AMOX1TAB10 PO; +AZIT250T PO; +BENZ-6 PO; +CETI10CA PO; -CYCL5TAB PO; -DICL75TA2 PO; +DOXY-214 PO; +GUAI120S25 PO; +LEVO500S PO; -LIDOCAINE 2% (SDV) 5 ML INJ ONE; +METR250T31 PO; -NASO17; +PRED20TA PO; -PROPOFOL 200 MG INJ ONE; +RANI300T PO; -SUCCINYLCHOLINE CHLORIDE 100 MG/5 ML SYG IV ONE; +SUCR1TAB56 PO
[2019-04-16 21:43] VITALS: Ht 160 cm; Wt 77.3 kg
[2019-04-17 01:35] VITALS: BP 129/76; PULSE 65; RESP 18
== END 2019-04-17 01:45 | disposition home or self-care (01) ==
LOC: FTE 21:31
DX: J18.9 Pneumonia, unspecified organism (principal)
CPT/HCPCS: 71045; Z7502